=== PATIENT | female | born 1940 | race Caucasian/White ===

== ENCOUNTER 2024-02-22 06:24 | Day surgery (SDC) | payer OTHER, SELFPAY ==
[2024-02-18 10:19] VITALS: BMI 20.5
[2024-02-18 10:38] LABS: Hematocrit 38.7 % (37.0-47.0); Hemoglobin 13.5 g/dL (12.0-16.0); Mean Corp Hgb Conc. 34.9 g/dL (33.0-37.0); Mean Corpuscular Hgb 30.3 pg (27.0-31.0); Mean Platelet Volume 10.1 fL (7.4-10.4); Platelet Count 230 10^3/uL (130-400); Red Blood Cell Count 4.45 10^6/uL (4.20-5.40); Red Cell Dist. Width 13.7 % (11.5-14.5); White Blood Cell Count 5.3 10^3/uL (4.8-10.8)
[2024-02-18 11:41] LABS: Blood Urea Nitrogen 13 mg/dl (7-17); Calcium 9.5 mg/dl (8.4-10.2); Carbon Dioxide 25 mmol/L (22-30); Chloride 101 mmol/L (98-107); Estimated Creatinine Clearance 53 ml/min; Glucose 89 mg/dl (70-99); Potassium 4.8 mmol/L (3.5-5.1); Sodium 137 mmol/L (135-145); eGFR > 60.00
[2024-02-22] VITALS (14 sets, daily range): BP systolic 80–119; BP diastolic 47–72; BMI 20.5
[2024-02-22] MEDS: NORMOSOL-R/PLASMALYTE-A 1000 IV (08:00)
--- NOTE | 2024-02-22 08:03 | HP.FOC2 ---
Focused History & Physical
Chief Complaint
HPI:
Chief Complaint: Bilateral inguinal hernias
HPI / Indication for Planned Procedure: Patient is an 83-year-old female recently seen in outpatient surgical follow-up secondary to a longstanding history of inguinal swelling, right side larger than left. She feels an occasional strain and
discomfort in the area during exercises and also feels gas moving in the region with her digestion. No symptoms suggestive of intermittent incarceration or obstruction.
Relevant Past Medical History: Other (Hypertension, hyperlipidemia, osteoarthritis)
Relevant Social History: Negative
Relevant Family History: Negative
Relevant Past Surgical History: Positive for (Left total knee replacement, cataracts)
Review of Systems
Review of Pertinent Systems: All Systems Negative
Medication
See Medication form for detailed medications: Yes
Medication List (including Herbals & OTC):
amlodipine 10 mg tablet 10 mg PO DAILY 06/08/14
atenolol 50 mg tablet 50 mg PO DAILY 06/08/14
bimatoprost 0.01 % eye drops (Lumigan) 1 drp BOTH EYES HS ##0 06/08/14
minoxidil 2.5 mg tablet 2.5 mg PO BID 06/08/14
naproxen sodium 220 mg tablet (Aleve) 220 mg PO PRN PRN pain ##0 06/08/14
cholecalciferol (vitamin D3) 50 mcg (2,000 unit) tablet (Vitamin D3) 50 mcg PO DAILY@1200 02/13/24
cyanocobalamin (vitamin B-12) 5,000 mcg sublingual tablet (Vitamin B-12) 5,000 mcg sublingual DAILY@1200 02/13/24
losartan 100 mg tablet 100 mg PO HS 02/13/24
Medications Reviewed: Yes
Allergies and Reactions
Patient has Allergies: No
Noted Allergies and Reactions:
Allergy/AdvReac Type Severity Reaction Status Date / Time
No Known Allergies Allergy Unverified 02/13/24 13:37
Pertinent Physical Exam
All Other Systems: Negative
Head/Neck: Normal
Lungs: Normal
Heart: Normal
Abdomen: Other (Bilateral inguinal hernias)
Extremities: Normal
Neurological: Normal
Diagnosis / Assessment
83-year-old female presenting for scheduled operative correction bilateral inguinal hernias
Plan / Procedure
Robotic assisted laparoscopic repair bilateral inguinal hernias with mesh
Anesthesia/Sedation to be done by Anesthesia Provider: Yes
--- NOTE | 2024-02-22 08:05 | W.SUR.PREOP ---
Pre-Operative Surgical Note
-
I have examined this patient prior to the performance of the scheduled procedure.
The patient's condition is unchanged from the time of the current History and
Physical and the patient is able to undergo the scheduled procedure.
[2024-02-22] MEDS: TYLENOL 1000 MG PO (08:16)
--- NOTE | 2024-02-22 10:40 | W.IMMPOSTOP ---
Addendum entered and electronically signed by Ryan John MD 02/22/24 10:49:
#[id number]
Original Note:
Surgical Immed Post Op Note
-
Primary Surgeon: Dora
Assisting Surgeon: Maribel Weeks PA-C
Pre-op Diagnosis: Bilateral inguinal hernias
Post-op Diagnosis: Bilateral inguinal hernias�indirect
Procedure Performed: Robotic assisted laparoscopic LACHO repair bilateral inguinal hernias with mesh; 3D max mid weight
Anesthesia Type: GETA +0.25% Marcaine
Specimen / Cultures: None
Estimated Blood Loss: 6 mL
Complications: None immediate
Operative Findings: Right indirect inguinal hernia; 3D max mid weight large mesh repair. Left indirect inguinal hernia; 3D max mid weight medium mesh repair. No additional incidental findings.
The assistance of Maribel Weeks PA-C was required due to the complexity of the procedure. During the procedure Maribel Weeks PA-C assisted with port placement, robotic instrumentation and suture material exchanges, and closure of the surgical incision
sites. I was present for the entirety of the operative procedure.
[2024-02-22] MEDS: DILAUDID 0.25 MG IV (11:06)
[2024-02-22] MEDS: MORPHINE SULFATE 1 MG IV (11:36)
== END 2024-02-22 13:43 | disposition home or self-care (01) ==
LOC: SDS 06:24
PROVIDERS: ATTENDING PHYSICIAN Surgery; FAMILY PHYSICIAN Internal Medicine
DX: K40.20 Bilateral inguinal hernia, without obstruction or gangrene, not specified as recurrent (principal)
CPT/HCPCS: 49650; 36415; 80048; 85027; 93005; C1781

== ENCOUNTER → 2024-03-21 14:39 | Outpatient (REF) | payer OTHER, SELFPAY | LOC: WDC 14:39 | PROVIDERS: ATTENDING PHYSICIAN Nurse Practitioner | DX: Z12.31 Encounter for screening mammogram for malignant neoplasm of breast (principal) | CPT/HCPCS: 77063; 77067 ==

== ENCOUNTER → 2024-04-04 10:47 | Outpatient (REF) | payer OTHER, SELFPAY | LOC: RAD 10:47 | PROVIDERS: ATTENDING PHYSICIAN Nurse Practitioner | DX: M81.0 Age-related osteoporosis without current pathological fracture (principal) | CPT/HCPCS: 77080 ==

== ENCOUNTER → 2025-04-24 13:15 | Outpatient (REF) | payer OTHER, SELFPAY | LOC: WDC 13:15 | PROVIDERS: ATTENDING PHYSICIAN Nurse Practitioner | DX: Z12.31 Encounter for screening mammogram for malignant neoplasm of breast (principal) | CPT/HCPCS: 77063; 77067 ==